=== PATIENT | female | born 1975 | race Hispanic/Latino ===

== ENCOUNTER 2020-02-19 16:48 | Emergency (ER) | payer OTHER, SELFPAY ==
[~2020-02-19 16:48] MED LIST: ACET1TAB25 PO; DICY20TA11 PO; DOCU-116 PO; FERR-82 PO; GLIP-196 PO; LISI2.5T2 PO; METF-526 PO; OMEP20CA12 PO; ONDA4TAB10 PO; TRIA15CR48 TP; TYL3 PO
[2020-02-19] MEDS ORDERED: KETOROLAC TROMETHAMINE 15MG/ML ONE (17:05)
== END 2020-02-19 18:38 | disposition home or self-care (01) ==
LOC: EDH 16:48
DX: M79.644 Pain in right finger(s) (principal); M79.641 Pain in right hand; I10 Essential (primary) hypertension; E11.9 Type 2 diabetes mellitus without complications; J45.909 Unspecified asthma, uncomplicated
CPT/HCPCS: 73130; 96372; 99283; J1885

== ENCOUNTER 2021-08-30 21:56 | Emergency (ER) | payer OTHER ==
[~2021-08-30] VITALS: Ht 157.5 cm; Wt 88.5 kg
[~2021-08-30 21:56] MED LIST changes: +ACET-2079 PO; -ACET1TAB25 PO; -DICY20TA11 PO; +DICY20TA3 PO; +LISI2.5T13 PO; -LISI2.5T2 PO
[2021-08-30 22:18] VITALS: BP 147/68
[2021-08-30] MEDS ORDERED: HYDROCODONE/ACETAMINOPHEN 5/325 MG TAB PO ONE (22:30)
[2021-08-30] MEDS ORDERED: KETOROLAC 60 MG VIAL (30MG/ML) IM ONE (22:30)
[2021-08-30] MEDS ORDERED: NAPR-1180 PO (22:42)
== END 2021-08-30 22:48 | disposition home or self-care (01) ==
LOC: EDH 21:56
DX: S40.012A Contusion of left shoulder, initial encounter (principal); E78.00 Pure hypercholesterolemia, unspecified; I10 Essential (primary) hypertension; Z79.1 Long term (current) use of non-steroidal anti-inflammatories (NSAID); Z79.84 Long term (current) use of oral hypoglycemic drugs; Z79.899 Other long term (current) drug therapy; X58.XXXA Exposure to other specified factors, initial encounter; Y93.89 Activity, other specified; Y92.89 Other specified places as the place of occurrence of the external cause; Y99.8 Other external cause status
CPT/HCPCS: 73030; 96372; 99283; J1885

== ENCOUNTER 2022-08-28 20:29 | Emergency (ER) | payer BC, OTHER ==
[~2022-08-28] VITALS: Ht 157.5 cm; Wt 86.2 kg
[~2022-08-28 20:29] MED LIST changes: +NAPR-1180 PO
[2022-08-28 21:08] LABS: BASOPHILS % (AUTO) 0.6 % (0.0-5.0); EOSINOPHILS % (AUTO) 2.6 % (0.0-8.0); HEMATOCRIT 37.4 % (36-48); LYMPHOCYTES % (AUTO) 33.3 % (21.0-51.0); MEAN CORPUSCULAR HEMOGLOBIN 28.2 pg (27.0-33.0); MEAN CORPUSCULAR HGB CONC 32.9 g/dL (32.0-36.0); MEAN CORPUSCULAR VOLUME 85.8 fL (79-99); MONOCYTES % (AUTO) 7.5 % (3.0-13.0); NEUTROPHILS % (AUTO) 55.8 % (40.0-77.0); PLATELET COUNT (AUTO) 293 K/uL (130-400); RED BLOOD CELL COUNT(AUTO) 4.36 MIL/uL (4.00-5.50); RED CELL DISTRIBUTION WIDTH 12.4 % (11.0-15.5); WHITE BLOOD COUNT (AUTO) 9.7 K/uL (4.8-10.8)
[2022-08-28 21:20] LABS: INR 0.97 (0.85-1.15); PROTHROMBIN TIME 10.6 SEC (9.6-11.6)
[2022-08-28 21:21] LABS: PARTIAL THROMBOPLASTIN TIME 26.1 SEC (26.3-35.5)
[2022-08-28 21:22] LABS: CREATININE 0.8 mg/dL (0.5-1.5); POTASSIUM 3.7 mmol/L (3.5-5.1)
[2022-08-28] MEDS ORDERED: MAG/ALUM/SIMETH 30 ML UDCUP PO ONE (21:30)
[2022-08-28 21:40] LABS: ALBUMIN 3.5 g/dL (3.5-5.0); TOTAL PROTEIN, SERUM 7.4 g/dL (6.0-8.3)
[2022-08-28] MEDS ORDERED: OMEP40CA21 PO (22:51)
[2022-08-28] MEDS ORDERED: ASPI-1005 PO (22:51)
[2022-08-28 23:06] VITALS: BP 126/68
== END 2022-08-28 23:06 | disposition home or self-care (01) ==
LOC: EDH 20:29
DX: R07.2 Precordial pain (principal); I10 Essential (primary) hypertension; E11.9 Type 2 diabetes mellitus without complications; E78.00 Pure hypercholesterolemia, unspecified; J45.909 Unspecified asthma, uncomplicated; Z79.84 Long term (current) use of oral hypoglycemic drugs; Z79.899 Other long term (current) drug therapy; Z90.49 Acquired absence of other specified parts of digestive tract; Z98.890 Other specified postprocedural states
CPT/HCPCS: 36415; 71045; 80053; 82550; 83735; 83880; 84484; 85025; 85610; 85730; 93005

== ENCOUNTER 2023-07-11 20:40 | Emergency (ER) | payer BC ==
[~2023-07-11] VITALS: Ht 157.5 cm; Wt 86.2 kg
[~2023-07-11 20:40] MED LIST changes: +ASPI-1005 PO; +OMEP40CA21 PO
[2023-07-11] MEDS: HYDROCODONE/ACETAMINOPHEN 5/325 MG TAB PO ONE (20:58)
[2023-07-11 21:04] VITALS: BP 139/75; PULSE 70; RESP 18; O2SAT 100
[2023-07-11] MEDS ORDERED: IBUP-2077 PO (21:33)
== END 2023-07-11 21:50 | disposition home or self-care (01) ==
LOC: EDH 20:40
DX: S63.592A Other specified sprain of left wrist, initial encounter (principal); S80.02XA Contusion of left knee, initial encounter; I10 Essential (primary) hypertension; E11.9 Type 2 diabetes mellitus without complications; E78.00 Pure hypercholesterolemia, unspecified; Z79.82 Long term (current) use of aspirin; Z79.84 Long term (current) use of oral hypoglycemic drugs; Z79.899 Other long term (current) drug therapy; Z98.890 Other specified postprocedural states; W18.39XA Other fall on same level, initial encounter; Y93.89 Activity, other specified; Y92.89 Other specified places as the place of occurrence of the external cause; Y99.8 Other external cause status
CPT/HCPCS: 29125; 73110; 73562

== ENCOUNTER 2024-10-11 18:02 | Emergency (ER) | payer SELFPAY ==
[~2024-10-11] VITALS: Ht 157.5 cm; Wt 81.6 kg
[~2024-10-11 18:02] MED LIST changes: +IBUP-2077 PO; +ONDA-243 PO; -ONDA4TAB10 PO
--- NOTE | 2024-10-11 19:32 | HMCIMG ---
EXAM: CR right Femur, 4 View. CLINICAL HISTORY: fall COMPARISON: None provided. FINDINGS: BONES: No acute fracture or aggressive appearing osseous lesion. JOINTS: No dislocation. SOFT TISSUES: The soft tissues are unremarkable. IMPRESSION: No acute osseous abnormality. /[place]
--- NOTE | 2024-10-11 19:32 | HMCIMG ---
EXAM: CR right Knee, 3 View. CLINICAL HISTORY: fall COMPARISON: None provided. FINDINGS: BONES: No acute fracture or aggressive appearing osseous lesion. JOINTS: The joint spaces show no significant degenerative disease. There is no joint effusion appreciated. SOFT TISSUES: The soft tissues are unremarkable. IMPRESSION: No acute osseous pathology evident. /[place]
--- NOTE | 2024-10-11 19:33 | HMCIMG ---
EXAM: CR right Wrist, 3 View. CLINICAL HISTORY: fall COMPARISON: None provided. FINDINGS: BONES: No fracture JOINTS: Mild degenerative changes SOFT TISSUES: The soft tissues are unremarkable. IMPRESSION: 1. Mild degenerative changes 2. No fracture /[place]
--- NOTE | 2024-10-11 19:53 | HMCIMG ---
EXAMINATION: CT Abdomen and Pelvis Without IV contrast CLINICAL HISTORY: Patient presents with diffuse abdominal pain and bruising status post fall. COMPARISON: None provided. TECHNIQUE: Axial computed tomography images of the abdomen and pelvis without intravenous contrast. Sagittal and coronal reformatted images submitted for interpretation. CONTRAST: No IV contrast. FINDINGS: LUNG BASES: The lung bases are clear. No pleural effusions are seen. LIVER: The liver is unremarkable. GALLBLADDER AND BILE DUCTS: The gallbladder is surgically absent. No biliary ductal dilatation. PANCREAS: The pancreas is unremarkable. SPLEEN: The spleen is unremarkable. ADRENAL GLANDS: The adrenal glands are unremarkable. KIDNEYS, URETERS, AND BLADDER: The kidneys are within normal limits. No hydronephrosis or hydroureter. No urinary calculi. STOMACH AND BOWEL: Unremarkable appearance of the stomach and bowel. No evidence of bowel obstruction. No signs of enteritis or colitis. APPENDIX: No evidence of acute appendicitis on CT examination. PERITONEUM: No free fluid. No free air. LYMPH NODES: No lymphadenopathy is evident. REPRODUCTIVE: The uterus and both ovaries are unremarkable. VASCULATURE: No evidence of abdominal aortic aneurysm. BONES: Multilevel mild degenerative changes of the spine. No aggressive appearing osseous lesion. No acute osseous pathology. IMPRESSION: Postsurgical absence of the gallbladder. No acute intra-abdominal or pelvic abnormality. /[place]
--- NOTE | 2024-10-11 19:55 | HMCIMG ---
EXAM: CR right Hand, 3 View. CLINICAL HISTORY: fall COMPARISON: None provided. FINDINGS: BONES: No acute fracture or aggressive appearing osseous lesion. JOINTS: No evidence of dislocation. The joint spaces are normal. SOFT TISSUES: The soft tissues appear within normal limits. No radiopaque foreign body is seen. IMPRESSION: No acute pathology evident. No acute fracture or dislocation. /[place]
--- NOTE | 2024-10-11 19:55 | HMCIMG ---
EXAM: CR right Tibia and fibula, 2 View. CLINICAL HISTORY: fall COMPARISON: None provided. FINDINGS: BONES: No acute fracture or aggressive appearing osseous lesion. JOINTS: No dislocation. The joint spaces are normal. SOFT TISSUES: The soft tissues are unremarkable. IMPRESSION: No acute osseous abnormality. /[place]
--- NOTE | 2024-10-11 19:55 | HMCIMG ---
EXAM: CR right Wrist, 3 View. CLINICAL HISTORY: fall COMPARISON: None provided. FINDINGS: BONES: No acute fracture or aggressive appearing osseous lesion. JOINTS: Mild degenerative changes SOFT TISSUES: The soft tissues are unremarkable. IMPRESSION: Mild degenerative changes /[place]
[2024-10-11] MEDS ORDERED: KETO10TA2 PO (20:13)
--- NOTE | 2024-10-11 20:13 | ERN ---
General Chief Complaint: Mechanical Fall Stated Complaint: HAND, LEG PAIN, FALL Time Seen by MD: 18:09 Time Seen by Midlevel: 18:09 Source: patient History of Present Illness Initial Comments The patient is a 49-year-old female presenting to the emergency department for evaluation following a mechanical ground level fall. The patient states she was jumping over some rocks when she accidentally fell in between them hitting her abdomen, knees, and bilateral lower extremities. On arrival she does report pain to bilateral wrists, her left hip, her left thigh area, and her right tib- fib area. She has an obvious contusion/abrasion/hematoma to the left thigh area. She has an abdominal wall hematoma. Denies any head injury. Denies wilman ng on any blood thinners. Allergies: Coded Allergies: No Known Drug Allergies (Unverified Allergy, Unknown, 12/29/15) Home Meds Active Scripts Ibuprofen (Ibuprofen 800 mg Tab) 800 Mg Tab, 800 MG PO Q8H PRN for fever or pain, #30 TAB 0 Refills Prov:MARIAN URIARTE NP 07/11/23 Aspirin (ASPIRIN 81MG CHEW TAB) 81 Mg Tab.chew, 81 MG PO DAILY, #100 TAB.CHEW Prov:JOHNIE ALLEN MD 08/28/22 Omeprazole (Omeprazole) 40 Mg Capsule.dr, 40 MG PO DAILY, #30 CAP Prov:JOHNIE ALLEN MD 08/28/22 Naproxen (Naprosyn) 500 Mg Tablet, 500 MG PO BIDPC, #30 TAB Prov:SOREN CRAWFORD 08/30/21 Acetaminophen with Codeine (Tylenol with Codeine #3) 1 Tab Tab, 1 TAB PO q4hr PRN for ABDOMINAL PAIN, #30 TAB Prov:RITU MUNOZ MD 12/30/15 Reported Medications Triamcinolone Acetonide (Triamcinolone Acetonide) 15 Gm Cream..g., 1 APPL TP BID, APPL 12/29/15 Lisinopril (Lisinopril) 2.5 Mg Tablet, 2.5 MG PO DAILY, TAB 12/29/15 Ondansetron (Ondansetron Odt) 4 Mg Tab.rapdis, 4 MG PO Q6H PRN for NAUSEA, TAB 12/29/15 Acetaminophen with Codeine (Acetaminophen-Cod #3 Tablet) 1 Each Tablet, 1 EACH PO Q6H PRN for PAIN LEVEL 4 TO 6, TAB 12/29/15 Dicyclomine HCl (Dicyclomine HCl) 20 Mg Tablet, 20 MG PO Q6H PRN for ABDOMINAL PAIN, TAB 12/29/15 Omeprazole (Omeprazole) 20 Mg Capsule.dr, 20 MG PO DAILY, CAP 12/29/15 Ferrous Sulfate (Iron) 325 Mg Tablet, 325 MG PO Q8H, TAB 12/29/15 Docusate Sodium (Colace) 100 Mg Capsule, 100 MG PO Q8H, CAP 12/29/15 Glipizide (Glipizide Xl) 10 Mg Tab.er.24, 10 MG PO BID 12/29/15 Metformin HCl (Metformin HCl ER) 500 Mg Tab.er.24, 1000 MG PO BIDMEALS, TAB 12/29/15 Past Medical History Past Medical History: Diabetes-Type II, High Cholesterol, Hypertension Past Surgical History: Cholecystectomy, Family History Family History: Negative Social History Social History: Negative Female( History) History: Not Applicable ROS Dictation CONSTITUTIONAL: Negative except for HPI HEAD/FACE: Negative except for HPI EENT: Negative except for HPI RESPIRATORY: Negative except for HPI GASTROINTESTINAL/ABDOMINAL: Negative except for HPI GENITOURINARY: Negative except for HPI MUSCULOSKELETAL: Negative except for HPI INTEGUMENTARY: Negative except for HPI NEUROLOGICAL/PSYCH: Negative except for HPI HEMATOLOGIC/LYMPHATIC: Negative except for HPI All Systems Negative, Except as noted above. 13 point review of systems assessed and all negative except for above. Physical Exam Physical Exam Dictation Vital Signs reviewed General Appearance: Alert, oriented x 3, no acute distress, well developed, nourished. Head and Face: non-traumatic. Eyes: PERRL, pink conjunctivas, eyelid no trauma, anterior chamber with arcus senilis. Ears: Pinnas intact and no signs of trauma or erythema ear canals clear and no discharge TM no erythema Nose: No discharge, no bleeding. Oropharynx: Mouth normal, tongue pink, pharynx clear,no erythema, tonsils no exudates, no abscesses noted, mucous membrane moist Neck: Supple, non-tender, no thyromegaly, no masses, no JVD, no bruits Breast:Deferred Chest:No tenderness, no crepitus, no paradoxical movement, no retractions Lungs:Clear, well-ventilated, symmetric, no rales, no wheezing, no rhonchi, no stridor, good breath sounds bilaterally Heart: Regular rate, regular rhythm, no murmur, no gallops Vascular: no peripheral edema, Abdomen: Soft, positive bowel sounds, nondistended, no guarding, nontender, no rebound, no masses no hepatomegaly, no splenomegaly, no Neal's sign, no hernias. Rectal: Deferred Genital: Deferred Neurological: Normal speech, motor function intact, sensory function intact Musculoskeletal: Neck nontender, full range of motion, back nontender, full range of motion, Extremities: There is an abrasion overlying the left lateral thigh area with an obvious hematoma measuring 6 x 6 cm, no evidence of compartment syndrome, there are abrasions to bilateral wrists and overlying the dorsal aspect of the right hand, there is an abrasion to the right knee and right tib-fib area. The patient has full range motion of all four extremities. Skin: Color pink, dry, no turgor, no rash, no lacerations, no abrasions, no contusions. Lymphatic: Deferred MDM MDM: Differential diagnosis: Fracture, contusion, dislocation There are no social concerns with this patient. Prescription drug management Prescriptions will include: Toradol Medical management and examination interpretation discussions were had by me with other qualified healthcare professionals as indicated for the patient's care. ED Course Orders Procedure Category Date Status Time Ct Abdomen/Pelvis W/O CT 10/11/24 Resulted Contrast 18:41 Wrist Comp 3+Vws Lt RAD 10/11/24 Resulted 18:41 Wrist Comp 3+Vws Rt RAD 10/11/24 Resulted 18:41 Hand 3+Vws Lt RAD 10/11/24 Resulted 18:41 Femur 2 Vw Left RAD 10/11/24 Resulted 18:41 Knee 3vws Rt RAD 10/11/24 Resulted 18:41 Tibia/Fibula 2vws Rt RAD 10/11/24 Resulted 18:41 Morphine 2mg Syg PHA 10/11/24 Complete (Morphine 2mg Syg) 19:00 Current Medications Medications (Trade) Dose Ordered Sig/Kristofer Route PRN Reason Start Time Stop Time Status Last Admin Dose Admin Morphine Sulfate (morPHINE 2MG SYG) 2 mg ONCE ONCE IM 10/11/24 19:00 10/11/24 19:01 DC 10/11/24 18:49 Vital Signs Date Time Temp Pulse Resp B/P (MAP) Pulse Ox O2 Delivery O2 Flow Rate FiO2 10/11/24 19:40 98.2 100 18 131/70 99 Room Air* 0 21 10/11/24 18:50 95 17 122/67 96 Room Air* 0 10/11/24 18:03 98.1 109 16 127/82 100 Room Air 0 DX & DISP Disposition: Discharge Departure Impression: Primary Impression: Hematoma of left thigh Additional Impressions: Abrasion of left thigh, Contusion of right wrist, Contusion of left wrist, Fall, Contusion of right lower extremity Condition: Stable Scripts Ketorolac Tromethamine (Ketorolac Tromethamine) 10 Mg Tablet 1 TAB PO BID for pain for 5 Days, #10 TAB 0 Refills Prov: PERLA SPAULDING 10/11/24 Referrals: GEORGETTE RIOS MD (PCP) Time of Disposition: 20:10 I have reviewed the case, and I agree with, Diagnosis and Plan I performed the substantive portion of the visit. I have reviewed and personally made and approve the management plan that is documented in the note by myself or the SAJAN. I acknowledge for responsibility for the patient's management plan. PERLA SPAULDING Oct 11, 2024 20:13
[2024-10-11] MEDS ORDERED: AMOX1TAB16 PO (20:32)
[2024-10-11] MEDS ORDERED: NEOM28.36 TP (20:34)
[2024-10-11] MEDS: BACITRACIN 1 EACH PACKET TP ONE ×2 (20:38→20:40)
[2024-10-11] MEDS: HYDROcodone/APAP 5/325 1 TAB TABLET PO ONE (20:47)
[2024-10-11 21:11] VITALS: BP 126/73; PULSE 96; RESP 18; TEMP 98; O2SAT 100
== END 2024-10-11 21:12 | disposition home or self-care (01) ==
LOC: EDH 18:02
DX: S60.211A Contusion of right wrist, initial encounter (principal); S60.212A Contusion of left wrist, initial encounter; S80.11XA Contusion of right lower leg, initial encounter; S70.12XA Contusion of left thigh, initial encounter; E11.9 Type 2 diabetes mellitus without complications; E78.00 Pure hypercholesterolemia, unspecified; I10 Essential (primary) hypertension; Z90.49 Acquired absence of other specified parts of digestive tract; Z79.899 Other long term (current) drug therapy; Z79.84 Long term (current) use of oral hypoglycemic drugs; Z79.82 Long term (current) use of aspirin; W18.39XA Other fall on same level, initial encounter; Y93.39 Activity, other involving climbing, rappelling and jumping off; Y92.89 Other specified places as the place of occurrence of the external cause; Y99.8 Other external cause status
CPT/HCPCS: 99285; 74176; 90714; 73130; 73552; 73562; 73590; 73110 ×2; 96372; 90471; J2270